=== PATIENT | male | born 1995 | race Caucasian/White ===

== ENCOUNTER 2017-11-11 17:04 | Emergency (ER) | payer SELFPAY ==
[~2017-11-11] VITALS: Ht 180.3 cm; Wt 54.4 kg
[2017-11-11 17:07] VITALS: BP_SYST 122
[2017-11-11 17:15] VITALS: BP_SYST 122
== END 2017-11-11 17:15 ==
LOC: SED 17:04
DX: Z02.89 Encounter for other administrative examinations (principal)
CPT/HCPCS: 99283

== ENCOUNTER 2018-01-06 10:51 | Emergency (ER) | payer SELFPAY ==
[~2018-01-06] VITALS: Ht 167.6 cm; Wt 48.1 kg
[2018-01-06 10:51] VITALS: BP_SYST 124
[2018-01-06 11:10] VITALS: BP_SYST 124
== END 2018-01-06 11:10 ==
LOC: SED 10:51
DX: F15.10 Other stimulant abuse, uncomplicated (principal); R03.0 Elevated blood-pressure reading, without diagnosis of hypertension
CPT/HCPCS: 99283

== ENCOUNTER 2018-04-25 04:48 | Emergency (ER) | payer SELFPAY ==
[~2018-04-25] VITALS: Ht 167.6 cm; Wt 49.0 kg
[2018-04-25 04:48] VITALS: BP_SYST 131
--- NOTE | 2018-04-25 04:48 | NUR ---
Pt BIB BLS, placed to ER bed 03. Per BLS, pt was found sleeping on sidewalk by [employer] and was stating "I want to go to the hospital." Pt has no chief complaint. Pt under the influence of Methamphetamine, admits last use was yesterday. Pt fidgity, stating "That's a stupid question" to assessment questions. Pt states "I want a sandwhich."
--- NOTE | 2018-04-25 04:50 | NUR ---
Pt provided with sandwich and orange juice.
--- NOTE | 2018-04-25 04:58 | NUR ---
Dr. Brock at bedside.
[2018-04-25] MEDS ORDERED: NACL 0.9% 1,000 ML IV ONE (05:00)
[2018-04-25 05:08] VITALS: BP_SYST 126
--- NOTE | 2018-04-25 05:08 | NUR ---
Patient given written and verbal discharge instructions and verbalizes understanding. ER MD discussed with patient the results and treatment provided. Patient in stable condition. ID arm band removed. No Rx given. Patient educated on pain management and to follow up with PMD. Pain Scale 0/10. Opportunity for questions provided and answered. Medication side effect fact sheet provided. Pt leaves ER with steady gait.
== END 2018-04-25 05:08 | disposition home or self-care (01) ==
LOC: SED 04:48
DX: F15.10 Other stimulant abuse, uncomplicated (principal)
CPT/HCPCS: 99283

== ENCOUNTER 2019-03-09 08:58 | Emergency (ER) | payer SELFPAY ==
[~2019-03-09] VITALS: Ht 180.3 cm; Wt 77.1 kg
== END 2019-03-09 09:09 ==
LOC: SED 08:58
DX: M79.18 Myalgia, other site (principal); Z00.00 Encounter for general adult medical examination without abnormal findings
CPT/HCPCS: 99283

== ENCOUNTER 2019-03-09 11:06 | Emergency (ER) | payer SELFPAY ==
[~2019-03-09] VITALS: Ht 180.3 cm; Wt 77.1 kg
[2019-03-09 11:06] VITALS: BP_SYST 128
[2019-03-09 12:10] VITALS: BP_SYST 118
== END 2019-03-09 12:10 ==
LOC: SED 11:06
DX: S01.111A Laceration without foreign body of right eyelid and periocular area, initial encounter (principal); F15.20 Other stimulant dependence, uncomplicated; X79.XXXA Intentional self-harm by blunt object, initial encounter; Y93.89 Activity, other specified; Y92.89 Other specified places as the place of occurrence of the external cause; Y99.8 Other external cause status
CPT/HCPCS: 99283

== ENCOUNTER 2019-10-12 16:28 | Emergency (ER) | payer SELFPAY ==
[~2019-10-12] VITALS: Ht 180.3 cm; Wt 72.6 kg
--- NOTE | 2019-10-12 16:30 | NUR ---
PATIENT TO ER #[facility]
--- NOTE | 2019-10-12 16:32 | NUR ---
Pt brought by police department , A&Ox4, pt present to ER with bleeding on L toe after patient pulled nail out , pt afebrile, skin pink and warm, cap refill <3, VSS.
--- NOTE | 2019-10-12 16:35 | NUR ---
Dr Hernandez at bedside examining patient
[2019-10-12] MEDS ORDERED: DIPH-TET-PERTUS Vaccine 0.5 ML VIAL (ADACEL) I.M. ONE (16:45)
[2019-10-12 16:51] VITALS: BP_SYST 135
--- NOTE | 2019-10-12 17:10 | NUR ---
Patient given written and verbal discharge instructions and verbalizes understanding. ER MD discussed with patient the results and treatment provided. Patient in stable condition. ID arm band removed. Rx of Motrin given. Patient educated on pain management and to follow up with PMD. Pain Scale 2/10 . Opportunity for questions provided and answered. Medication side effect fact sheet provided.
[2019-10-12 17:28] VITALS: BP_SYST 132
== END 2019-10-12 17:10 ==
LOC: SED 16:28
DX: S91.202A Unspecified open wound of left great toe with damage to nail, initial encounter (principal); X58.XXXA Exposure to other specified factors, initial encounter; Y93.89 Activity, other specified; Y92.89 Other specified places as the place of occurrence of the external cause; Y99.8 Other external cause status
CPT/HCPCS: 90715; 99283

== ENCOUNTER 2022-11-06 17:13 | Inpatient (IN) | payer MEDICAID ==
[~2022-11-06] VITALS: Ht 177.8 cm; Wt 72.1 kg
[2022-11-06 17:20] VITALS: BP_SYST 135; PULSE 107; RESP 22; TEMP 98; O2SAT 100
--- NOTE | 2022-11-06 17:30 | NUR ---
Patient BIB BLS ambulance, Patient walked into a bank asking for Paramedics. States he is on meth, has been homeless since age of 18 and needs help. Patient wants to go to [place]. No specfic complaint at this time. Denies pain or distress. Patient is very restless and has heightened senses, is bothered by even the slightest noise. Does not want to be touched but is not combative as of now. Not a good historian of med Hx.
--- NOTE | 2022-11-06 17:49 | NUR ---
ekg attempted on pt, however pt is too fidgety and introduced too much artifact. md and rn made aware that EKG will be attempted later.
[2022-11-06 18:13] LABS: BASOPHILS % (AUTO) 0.3 % (0.0-2.0); HEMATOCRIT 34.9 % (36-54); HEMOGLOBIN 11.6 g/dL (14.0-18.0); LYMPHOCYTES # (AUTO) 1.2 K/uL (1.0-5.5); LYMPHOCYTES % (AUTO) 9.9 % (20.5-51.5); MEAN CORPUSCULAR HEMOGLOBIN 30 pg (27-31); MEAN CORPUSCULAR HGB CONC 33 % (32-36); MEAN CORPUSCULAR VOLUME 91 fL (79.0-98.0); MONOCYTES # (AUTO) 1.1 K/uL (0.0-1.0); NEUTROPHILS # (AUTO) 9.9 K/uL (1.8-7.7); NEUTROPHILS % (AUTO) 80.8 % (40.0-70.0); PLATELET COUNT (AUTO) 246 K/uL (130-430); RED BLOOD CELL COUNT(AUTO) 3.85 MIL/uL (4.2-6.2); RED CELL DISTRIBUTION WIDTH 13.2 % (9.0-15.0); WHITE BLOOD COUNT (AUTO) 12.3 K/uL (4.8-10.8)
[2022-11-06 18:28] LABS: ALANINE AMINOTRANSFERASE 67 U/L (12-78); ALBUMIN 4.4 g/dL (3.4-4.8); ANION GAP 14 (5-15); ASPARTATE AMINOTRANSFERASE 75 U/L (10-37); CALCIUM 8.7 mg/dL (8.4-11.0); CHLORIDE 98 mmol/L (98-107); CREATININE 1.21 mg/dL (0.55-1.30); GFR AFRICAN AMERICAN 93 mL/min (>90); GLUCOSE 99 mg/dL (74-106); TOTAL BILIRUBIN 2.3 mg/dL (0.0-1.0); UREA NITROGEN, BLOOD 33 mg/dL (8-21)
[2022-11-06] MEDS ORDERED: LORazepam 1 MG TABLET PO ONE (18:30)
--- NOTE | 2022-11-06 18:30 | NUR ---
Radiology bedside - portable chest xray
[2022-11-06 18:37] LABS: ACETAMINOPHEN < 1 ug/mL (1-30); ALCOHOL, BLOOD < 3 mg/dL (<10)
[2022-11-06 19:04] LABS: CKMB RELATIVE INDEX 0.6 (0.0-2.9); CREATINE KINASE MB 15.1 ng/mL (0-3.6)
[2022-11-06 19:09] LABS: ACETONE, SERUM NEGATIVE (NEGATIVE)
[2022-11-06] MEDS ORDERED: HALOPERIDOL LACTATE 5 MG/ML VIAL IM ONE (19:15)
[2022-11-06] MEDS ORDERED: DIPHENHYDRAMINE INJ 50 MG/ML VIAL IM ONE (19:15)
[2022-11-06] MEDS ORDERED: LORazepam 2 MG/ML VIAL IM ONE (19:15)
[2022-11-06] MEDS ORDERED: NACL 0.9% 1,000 ML IV ONE (19:15)
--- NOTE | 2022-11-06 19:20 | NUR ---
RECIEVED PT FROM [facility] PT IN ROOM 5 ON THE MONITOR WITH EYES CLOSED BREATHING EVEN AND UNLABOURED. PT VSS AT THIS TIME. PLAN OF CARE CONTINUES.
--- NOTE | 2022-11-06 19:44 | NUR ---
Admit bed requested Patient will be admitted to care of . Admitted to TELEMETRY unit. Diagnosis ACUTE RHABDOMYOLISIS Inpatient (Yes or No)YES Observation (Yes or No) YES Orientation concerns or request close to nursing station YES(Yes or No) Covid Status N On vent or bipap N Isolation requirements N Needs a sitter N From Home (Yes or if No enter name of facility) N Requires Dialysis (Yes or No) N Med Rec Completed (Yes of No) Y
--- NOTE | 2022-11-06 19:55 | NUR ---
Pt BECAME AGRESSIVE FAILING ARMS AND KICKING LEGS WHEN ATTEMPING VITALS, AND IV ACCESS, ONE LINE PLACED, DUE TO DANGER TO STAFF INJURY WILL WAIT FOR PT TO USE URINAL. URINAL AT BEDSIDE.
[2022-11-06] MEDS ORDERED: D5NS IV SCH (20:00)
[2022-11-06] MEDS ORDERED: SODIUM BICARBONATE IV SCH (20:00)
[2022-11-06] MEDS ORDERED: SODIUM BICARBONATE 8.4% VIAL 50 MEQ/50 ML VIAL ONE (20:02)
--- NOTE | 2022-11-06 20:09 | NUR ---
pt in room 5 on the monitor with eyes closed breathing even and unlaboured. no sign of distress or pain at this time. plan of care continues.
[2022-11-06] MEDS ORDERED: D5W 1,000 ML IV SCH (20:15)
[2022-11-06] MEDS: SODIUM BICARBONATE 8.4% VIAL 100 MEQ in D5W 1,000 ML IV SCH (20:17)
--- NOTE | 2022-11-06 22:06 | NUR ---
pt in room 5 on the monitor eyes closed. pt breathing even and unlaboured. plan of care continues.
--- NOTE | 2022-11-07 | NUR ---
URINAL A BEDSIDE, PT EYES CLOSED, VSS, CONNECTED TO VS CONTINOUS MONITOR. NO URINE ABLE TO BE COLLECTED.
--- NOTE | 2022-11-07 01:32 | NUR ---
pt in room 5 on the monitor eyes closed. pt breathing even and unlaboured. plan of care continues.
--- NOTE | 2022-11-07 03:26 | NUR ---
pt in room 5 on the monitor eyes closed. pt breathing even and unlaboured. plan of care continues.
--- NOTE | 2022-11-07 05:15 | NUR ---
pt in room 5 on the monitor eyes closed. pt breathing even and unlaboured. plan of care continues.
--- NOTE | 2022-11-07 07:07 | NUR ---
report given to lorenzo angulo with chance of questions at this time. no further questions or concers at this time.
[2022-11-07] MEDS: SODIUM BICARBONATE 8.4% VIAL 100 MEQ in D5W 1,000 ML IV SCH ×2 (07:15→18:15)
--- NOTE | 2022-11-07 07:23 | NUR ---
Patient received from KHANG RN. Patient currently sleeping with no signs of discomfort. Awaiting transfer to [facility] bed at this time.
--- NOTE | 2022-11-07 08:57 | NUR ---
Left Reg. diet tray. Pt is sleeping now.
--- NOTE | 2022-11-07 09:25 | NUR ---
Patient sleeping deeply; shows no signs of acute distress at this time.
[2022-11-07 10:39] LABS: CREATININE 0.79 mg/dL (0.55-1.30)
[2022-11-07 11:29] LABS: CKMB RELATIVE INDEX 0.8 (0.0-2.9); CREATINE KINASE MB 12.5 ng/mL (0-3.6)
--- NOTE | 2022-11-07 11:39 | NUR ---
Spoke to Dr. Espinal regarding patient. Advised that labs have been collected but results are pending. Told him that we would call with results when patient's urine has been processed. Still awaiting patient to urinate; patient sleeping at this time.
--- NOTE | 2022-11-07 14:00 | NUR ---
Patient will be admitted to care of Dr. Ingram. Admitted to tele unit. Will go to room 112A. Belongings list completed. Complete and up to date summary report printed. SBAR report to be given at bedside with opportunity for questions.
--- NOTE | 2022-11-07 14:26 | NUR ---
CONSULTATION PAGED REASON FOR CONSULTATION: [facility] WAS CONSULT CALLED? Y PERSON WHO WAS NOTIFIED: ROMMEL CONSULTING PHYSICIAN: ALCON PAYAN MACHINE FANCY STITCHER SPECIALTY: PSYCHE MACHINE FANCY STITCHER PHONE NUMBER: [phone] REQUESTING PHYSICIAN: MARIS MUNIZ
--- NOTE | 2022-11-07 14:35 | NUR ---
Admission note Received report from Willie JORDAN via SBAR report, patient arrived from ER via gurney in room 112A bed. Admitted diagnosis of Rhabdomylosis. Patient drowsy/sleepy, deep stimuli to wake, ate snack, knows where he is but does not know today date and day of week. Patient then goes back to sleep. IV infusing to right forearm patent. All belonging check and documented. Safety precaution secured, bed in low position and activate bed alarm and all light within reach.
[2022-11-07 15:04] VITALS: BP_SYST 129; PULSE 56; RESP 18; TEMP 97.8; O2SAT 100
[2022-11-07 15:43] LABS: BILIRUBIN,URINE NEGATIVE (NEGATIVE); BLOOD, URINE NEGATIVE (NEGATIVE); CLARITY/URINE CLEAR (CLEAR); COLOR,URINE YELLOW (YELLOW); GLUCOSE,URINE NEGATIVE (NEGATIVE); KETONES,URINE 1+ (NEGATIVE); LEUKOCYTE ESTERASE ,URINE NEGATIVE (NEGATIVE); NITRITE, URINE NEGATIVE (NEGATIVE); PROTEIN URINE NEGATIVE (NEGATIVE); UROBILINOGEN,URINE 0.2 (0.2-1.0)
--- NOTE | 2022-11-07 15:45 | NUR ---
Dr. Heck psychiatry called to speak with patient, doctor unable to assess patient drowsy/sleepy states "called in telepsych when patient is more alert/awake", will endorse
[2022-11-07 16:17] LABS: BARBITURATE, URINE NEGATIVE (NEG <=200); BENZODIAZEPINE, URINE POSITIVE (NEG <=150); CANNABINOID, URINE NEGATIVE (NEG <=50); COCAINE, URINE NEGATIVE (NEG <=150); METHAMPHETAMINES SCREEN,URINE POSITIVE (NEG <=500); OPIATE, URINE NEGATIVE (NEG <=100); PHENCYCLIDINE SCREEN,URINE NEGATIVE (NEG <=25); URINE AMPHETAMINE POSITIVE (NEG <=500); URINE METHADONE NEGATIVE (NEG <=200); URINE OXYCODONE SCREEN NEGATIVE (NEG <=100); URINE PROPOXYPHENE SCREEN NEGATIVE (NEG <=300)
[2022-11-07 16:18] LABS: UR TRICYCLIC ANTIDEPRESSANTS NEGATIVE (NEG <=300)
[2022-11-07 18:59] VITALS: BP_SYST 125; PULSE 61; RESP 18; TEMP 97.8; O2SAT 100
--- NOTE | 2022-11-07 19:00 | NUR ---
Patient resting in bed, no c/o pain or SOB, all safety secured will endorse
[2022-11-07 20:30] VITALS: BP_SYST 137; PULSE 78; RESP 20; TEMP 97.5; O2SAT 96
[2022-11-08] VITALS (8 sets, daily range): BP systolic 105–129; PULSE 56–76; RESP 17–20; TEMP 97.7–98.3; O2SAT 95–99
--- NOTE | 2022-11-08 05:45 | NUR ---
Patient Refuse blood drawl from Lab / .
[2022-11-08] MEDS: SODIUM BICARBONATE 8.4% VIAL 100 MEQ in D5W 1,000 ML IV SCH ×2 (06:24→16:38)
--- NOTE | 2022-11-08 08:00 | NUR ---
Initial notes Received patient awake in bed, no signs of distress.IV to right forearm patient. all safety precaution secured, bed in low position and call light w/in reached./
[2022-11-08 09:47] LABS: ALBUMIN 3.1 g/dL (3.4-4.8); CREATININE 0.81 mg/dL (0.55-1.30); TOTAL BILIRUBIN 0.9 mg/dL (0.0-1.0)
[2022-11-08 09:59] LABS: BASOPHILS % (AUTO) 0.1 % (0.0-2.0); EOSINOPHILS # (AUTO) 0.1 K/uL (0.0-0.4); EOSINOPHILS % (AUTO) 1.3 % (0.0-4.0); HEMATOCRIT 35.4 % (36-54); HEMOGLOBIN 11.6 g/dL (14.0-18.0); LYMPHOCYTES # (AUTO) 1.4 K/uL (1.0-5.5); LYMPHOCYTES % (AUTO) 18.4 % (20.5-51.5); MEAN CORPUSCULAR HEMOGLOBIN 30 pg (27-31); MEAN CORPUSCULAR HGB CONC 33 % (32-36); MEAN CORPUSCULAR VOLUME 92 fL (79.0-98.0); MONOCYTES # (AUTO) 0.7 K/uL (0.0-1.0); MONOCYTES % (AUTO) 9.9 % (1.7-9.3); NEUTROPHILS # (AUTO) 5.2 K/uL (1.8-7.7); NEUTROPHILS % (AUTO) 70.3 % (40.0-70.0); PLATELET COUNT (AUTO) 233 K/uL (130-430); RED BLOOD CELL COUNT(AUTO) 3.86 MIL/uL (4.2-6.2); RED CELL DISTRIBUTION WIDTH 13.3 % (9.0-15.0); WHITE BLOOD COUNT (AUTO) 7.4 K/uL (4.8-10.8)
--- NOTE | 2022-11-08 14:15 | NUR ---
Dietitian Recommendations: * Continue Regular diet. ZEHRA BENNETT Trainee Please refer to Nutritional Assessment for further details. Addendum: 11/08/22 at [address] Amended: Links added.
[2022-11-08] MEDS ORDERED: traMADol HCL HCL 50 MG TABLET (ULTRAM) PO PRN (15:30)
[2022-11-08] MEDS ORDERED: ONDANSETRON HCL 4 MG/2 ML VIAL IVP PRN (15:30)
[2022-11-08] MEDS ORDERED: ACETAMINOPHEN 325 MG TABLET PO PRN (15:30)
--- NOTE | 2022-11-08 19:00 | NUR ---
Patient resting in bed awake watching TV, no c./o pain./SOB ,no signs of distress noted, will endorse.
--- NOTE | 2022-11-08 20:13 | NUR ---
[facility] CALLED TO SEE IF THEY HAVE ANY MALE BEDS THEY ASKED TO FAX OVER CLINICALS AND WILL GET BACK TO US Addendum: 11/08/22 at 2117 by Yvonne Moon CNA FAXED TO [phone]
[2022-11-09] VITALS: BP_SYST 106; PULSE 56; RESP 20; TEMP 97.9; O2SAT 99
[2022-11-09] MEDS: SODIUM BICARBONATE 8.4% VIAL 100 MEQ in D5W 1,000 ML IV SCH ×2 (03:52→14:15)
[2022-11-09 05:40] LABS: BASOPHILS % (AUTO) 0.4 % (0.0-2.0); EOSINOPHILS # (AUTO) 0.1 K/uL (0.0-0.4); EOSINOPHILS % (AUTO) 1.5 % (0.0-4.0); HEMATOCRIT 34.6 % (36-54); HEMOGLOBIN 11.4 g/dL (14.0-18.0); LYMPHOCYTES # (AUTO) 1.9 K/uL (1.0-5.5); LYMPHOCYTES % (AUTO) 35.9 % (20.5-51.5); MEAN CORPUSCULAR HEMOGLOBIN 31 pg (27-31); MEAN CORPUSCULAR HGB CONC 33 % (32-36); MEAN CORPUSCULAR VOLUME 93 fL (79.0-98.0); MONOCYTES # (AUTO) 0.6 K/uL (0.0-1.0); MONOCYTES % (AUTO) 11.5 % (1.7-9.3); NEUTROPHILS # (AUTO) 2.7 K/uL (1.8-7.7); NEUTROPHILS % (AUTO) 50.7 % (40.0-70.0); PLATELET COUNT (AUTO) 225 K/uL (130-430); RED BLOOD CELL COUNT(AUTO) 3.74 MIL/uL (4.2-6.2); RED CELL DISTRIBUTION WIDTH 12.9 % (9.0-15.0); WHITE BLOOD COUNT (AUTO) 5.3 K/uL (4.8-10.8)
--- NOTE | 2022-11-09 06:01 | NUR ---
follow up with [facility] called to see if they will be able to accept pt they said they will have more info in am after 0800
[2022-11-09 06:11] LABS: CALCIUM 7.8 mg/dL (8.4-11.0); CREATININE 0.75 mg/dL (0.55-1.30)
--- NOTE | 2022-11-09 06:30 | NUR ---
Mr Casey has been assessed as indicated. He continues to deny pain and has been noted to be both pleasant and cooperative. He ambulates to the restroom and has been A&OX4. Due to lethargy he was unable to complete a telepsych visit. he is coherent at this time and tele psych should be re-attempted. He is resting quietly at this time
[2022-11-09 06:53] LABS: CKMB RELATIVE INDEX 0.3 (0.0-2.9); CREATINE KINASE MB 1.5 ng/mL (0-3.6)
--- NOTE | 2022-11-09 07:30 | NUR ---
Handoff has been given to Lopez
--- NOTE | 2022-11-09 14:29 | NUR ---
Spoke with [facility] and Doctor Tone(?) will consult if available.
--- NOTE | 2022-11-09 15:22 | NUR ---
Patient says he wants his aunt to take him to rehab. Patient father present and asking about plan for rehab. Aware telepsych consult for now.
--- NOTE | 2022-11-09 15:40 | NUR ---
Patient clearance for discharge from a psychiatric standpoint.
--- NOTE | 2022-11-09 15:59 | NUR ---
Patient doctor unable to discharge at this time. Request for patient to stay. Patient wants to sign against medical advice and go to rehab.
--- NOTE | 2022-11-09 17:39 | NUR ---
[employer] Room Attendant PACKAGE CRIMPER received a referral to see pt. Rn sent a packet of clinicals to [facility]. PACKAGE CRIMPER called [facility] to follow up ,but they did not have packet and asked for it to be sent once again. PACKAGE CRIMPER read notes and spoke to Christina Marroquin who stated Dr. Heck assessed pt. and felt [facility] SW me with pt at bedside. Pt. was dressed and ready to go. Rn stated pt. wanted to leave AMA. PACKAGE CRIMPER introduced self to pt. confirmed his homelessness status and provided pt. with homeless resources including a packet. Pt ripped 1st page off, folded and placed in his pocket. Pt. was offered and given a change of clothing. Pt was offered an uber, but stated he would have to wait for one and give an address. Pt. said, "Forget it" he left AMA.
== END 2022-11-09 16:50 | disposition left against medical advice (07) | DRG 351 ==
LOC: SED 17:13 → STU 19:39 → SMU 11-09 01:04
PROVIDERS: ADMIT Internal Medicine; ATTEND Internal Medicine
DX: M62.82 Rhabdomyolysis (principal); N17.0 Acute kidney failure with tubular necrosis; G93.41 Metabolic encephalopathy; E44.1 Mild protein-calorie malnutrition; E86.0 Dehydration; E87.1 Hypo-osmolality and hyponatremia; D64.9 Anemia, unspecified; F15.10 Other stimulant abuse, uncomplicated; Z53.29 Procedure and treatment not carried out because of patient's decision for other reasons; Z68.22 Body mass index [BMI] 22.0-22.9, adult
CPT/HCPCS: 36415; 71045; 80048; 80053; 80307; 81003; 82009; 82550; 82553; 83605; 83735; 84100; 84484; 85025; 93005; 96360; 96372; 99291; G0378; G0480; G0481; G0482; J1200; J1630; J2060; J7030; J7042; J7060

== ENCOUNTER 2023-03-10 05:16 | Emergency (ER) | payer MEDICAID ==
[~2023-03-10] VITALS: Ht 177.8 cm; Wt 68.0 kg
[2023-03-10 05:25] VITALS: BP_SYST 118; PULSE 54; RESP 15; TEMP 96.5; O2SAT 100
[2023-03-10 06:19] LABS: BASOPHILS # (AUTO) 0.1 K/uL (0.0-0.2); BASOPHILS % (AUTO) 0.7 % (0.0-2.0); EOSINOPHILS # (AUTO) 0.1 K/uL (0.0-0.4); EOSINOPHILS % (AUTO) 0.5 % (0.0-4.0); HEMATOCRIT 40.9 % (36-54); LYMPHOCYTES # (AUTO) 1.2 K/uL (1.0-5.5); LYMPHOCYTES % (AUTO) 10.1 % (20.5-51.5); MEAN CORPUSCULAR HEMOGLOBIN 29 pg (27-31); MEAN CORPUSCULAR HGB CONC 32 % (32-36); MEAN CORPUSCULAR VOLUME 90 fL (79.0-98.0); MONOCYTES # (AUTO) 0.8 K/uL (0.0-1.0); MONOCYTES % (AUTO) 6.5 % (1.7-9.3); NEUTROPHILS # (AUTO) 9.7 K/uL (1.8-7.7); NEUTROPHILS % (AUTO) 82.2 % (40.0-70.0); PLATELET COUNT (AUTO) 333 K/uL (130-430); RED BLOOD CELL COUNT(AUTO) 4.55 MIL/uL (4.2-6.2); RED CELL DISTRIBUTION WIDTH 15.6 % (9.0-15.0); WHITE BLOOD COUNT (AUTO) 11.7 K/uL (4.8-10.8)
[2023-03-10 06:21] LABS: INR 1.1 (0.80-1.20); PROTHROMBIN TIME 10.9 SECS (9.5-12.5)
[2023-03-10 06:22] LABS: ANION GAP 8 (5-15); CALCIUM 9.2 mg/dL (8.4-11.0); CARBON DIOXIDE 27 mmol/L (23-29); CHLORIDE 104 mmol/L (98-107); CREATININE 0.91 mg/dL (0.55-1.30); GFR AFRICAN AMERICAN 129 mL/min (>90); GLUCOSE 91 mg/dL (74-106); POTASSIUM 3.7 mmol/L (3.5-5.1); SODIUM SERUM 139 mmol/L (136-145); UREA NITROGEN, BLOOD 18 mg/dL (8-21)
[2023-03-10 06:23] LABS: GFR NON AFRICAN-AMERICAN 106 mL/min (>90)
[2023-03-10 06:30] LABS: ALANINE AMINOTRANSFERASE 37 U/L (12-78); ALBUMIN 3.5 g/dL (3.4-4.8); ASPARTATE AMINOTRANSFERASE 29 U/L (10-37); CREATINE KINASE, TOTAL 535 U/L (39-308); TOTAL BILIRUBIN 1.1 mg/dL (0.0-1.0); TOTAL PROTEIN, SERUM 7.3 g/dL (6.4-8.3)
[2023-03-10 06:31] LABS: ACETAMINOPHEN < 1 ug/mL (1-30); ALCOHOL, BLOOD < 3 mg/dL (<10); SALICYLATE < 1 mg/dL (3-30)
[2023-03-10 06:53] LABS: CKMB RELATIVE INDEX 3.9 (0.0-2.9)
[2023-03-10 11:24] LABS: BILIRUBIN,URINE NEGATIVE (NEGATIVE); BLOOD, URINE NEGATIVE (NEGATIVE); CLARITY/URINE CLEAR (CLEAR); COLOR,URINE YELLOW (YELLOW); GLUCOSE,URINE NEGATIVE (NEGATIVE); KETONES,URINE NEGATIVE (NEGATIVE); LEUKOCYTE ESTERASE ,URINE NEGATIVE (NEGATIVE); NITRITE, URINE NEGATIVE (NEGATIVE); PROTEIN URINE NEGATIVE (NEGATIVE); UROBILINOGEN,URINE 0.2 (0.2-1.0)
[2023-03-10 11:39] LABS: BARBITURATE, URINE NEGATIVE (NEG <=200); BENZODIAZEPINE, URINE NEGATIVE (NEG <=150); CANNABINOID, URINE NEGATIVE (NEG <=50); COCAINE, URINE NEGATIVE (NEG <=150); METHAMPHETAMINES SCREEN,URINE POSITIVE (NEG <=500); OPIATE, URINE NEGATIVE (NEG <=100); PHENCYCLIDINE SCREEN,URINE NEGATIVE (NEG <=25); URINE AMPHETAMINE POSITIVE (NEG <=500); URINE METHADONE NEGATIVE (NEG <=200); URINE OXYCODONE SCREEN NEGATIVE (NEG <=100); URINE PROPOXYPHENE SCREEN NEGATIVE (NEG <=300)
[2023-03-10 11:40] LABS: UR TRICYCLIC ANTIDEPRESSANTS NEGATIVE (NEG <=300)
[2023-03-10 12:10] LABS: CREATINE KINASE, TOTAL 341 U/L (39-308)
[2023-03-10 12:42] LABS: ALCOHOL, BLOOD < 3 mg/dL (<10)
[2023-03-10 12:43] VITALS: BP_SYST 103; PULSE 69; RESP 16; TEMP 96.9; O2SAT 99
[2023-03-10 13:17] LABS: ACETONE, SERUM NEGATIVE (NEGATIVE)
[2023-03-10 13:42] LABS: CKMB RELATIVE INDEX 6.5 (0.0-2.9); CREATINE KINASE MB 22.2 ng/mL (0-3.6)
== END 2023-03-10 12:43 | disposition home or self-care (01) ==
LOC: SED 05:16
DX: T68.XXXA Hypothermia, initial encounter (principal); R41.82 Altered mental status, unspecified; R00.1 Bradycardia, unspecified; F15.10 Other stimulant abuse, uncomplicated; Z79.899 Other long term (current) drug therapy; X31.XXXA Exposure to excessive natural cold, initial encounter
CPT/HCPCS: 99285; 70450; 71045; 80307; 80053; 82009; 82140; 82550; 82553; 82962; 85025; 85610; 84484; 36415; 93005; 76376; 81003; 82397; 81001; G0480; G0481; G0482